=== PATIENT | female | born 1955 | race Caucasian/White ===

== ENCOUNTER 2017-03-07 11:25 | Outpatient (CLI) | payer BC | END 2017-03-07 11:26 | disposition home or self-care (01) | DX: E78.5 Hyperlipidemia, unspecified (principal); E03.9 Hypothyroidism, unspecified; I10 Essential (primary) hypertension ==

== ENCOUNTER 2017-04-23 12:58 | Outpatient (CLI) | payer BC | END 2017-04-23 12:59 | disposition EMS.NT | LOC: EMS 12:58 | PROVIDERS: ATTEND Surgery | DX: R20.0 Anesthesia of skin (principal); R20.2 Paresthesia of skin ==

== ENCOUNTER 2019-04-20 11:46 | Outpatient (CLI) | payer BC | END 2019-04-20 11:47 | disposition short-term general hospital (02) | LOC: EMS 11:46 | PROVIDERS: ATTEND Surgery | DX: R41.3 Other amnesia (principal); H53.2 Diplopia | CPT/HCPCS: A0425; A0427 ==

== ENCOUNTER 2020-10-30 12:27 | Outpatient (CLI) | payer OTHER | END 2020-10-30 12:28 | disposition EMS.NT | LOC: EMS 12:27 | PROVIDERS: ATTEND Surgery | DX: H53.9 Unspecified visual disturbance (principal); R47.02 Dysphasia ==

== ENCOUNTER 2022-02-12 08:00 | Outpatient (CLI) | payer MEDICARE ==
--- NOTE | 2022-02-12 09:51 | XRAY Report ---
PROCEDURE: Ankle 3 View LT INDICATIONS: LEFT ANKLE PAIN TECHNIQUE: 3 views of the ankle were acquired. COMPARISON: None. FINDINGS: BONES: Cortical irregularity of the anterior talar process, concerning for displaced fracture/avulsi on. The ankle mortise is maintained on these nonstressed views. SOFT TISSUES: Lateral soft tissue swelling. IMPRESSION: 1.Minimal displaced, avulsion fracture of the anterior talar process. Reviewed by: Myles Toledo MD on 02/12/2022 9:49 AM PDT Approved by: Myles Toledo MD on 02/12/2022 9:49 AM PDT Station ID: [id number]
== END 2022-02-12 23:59 | disposition home or self-care (01) ==
LOC: DI.S 08:00
PROVIDERS: ATTEND Registered Nurse
DX: S92.152A Displaced avulsion fracture (chip fracture) of left talus, initial encounter for closed fracture (principal)

== ENCOUNTER 2022-08-29 14:47 | Outpatient (CLI) | payer MEDICARE | END 2022-08-29 14:48 | disposition critical access hospital (66) | LOC: EMS 14:47 | DX: H53.8 Other visual disturbances (principal); R41.89 Other symptoms and signs involving cognitive functions and awareness; R47.9 Unspecified speech disturbances; R51.9 Headache, unspecified | CPT/HCPCS: A0425; A0429 ==

== ENCOUNTER 2022-08-29 15:25 | Emergency (ER) | payer MEDICARE ==
--- NOTE | 2022-08-29 15:43 | ED Physician Documentation ---
PD HPI FOCAL NEURO - Stated complaint Stated Complaint: AMS - History obtained from History obtained from: Patient - Additional information Additional information: 67-year-old woman with history of hypertension, depression, and ADD. She quit all of her medications a few weeks ago. She comes by ambulance for a resolved episode of symptoms that she has had before. Around 10:00 today she was feeding her horses and she developed what she d escribes as spotty vision in the periphery of both eyes with a pattern in the periphery of both eyes. There was nothing like amaurosis fugax or and had a hemianopsia. This was followed by mild confusion such as she could not really figure out her phone or figure out how to log in her computer. It was followed by some pressure behind the left eye. In total the symptoms lasted for a few hours and are now completely gone. She has had this several times before and has been to the hospital couple times for. It was diagnosed as TIA after thorough work-up and imaging. Review of Systems Ten Systems: 10 systems reviewed and negative Constitutional: denies: Fever, Chills Nose: denies: Rhinorrhea / runny nose Throat: denies: Sore throat Cardiac: denies: Chest pain / pressure, Palpitations Respiratory: denies: Dyspnea PD PAST MEDICAL HISTORY - Present Medications Home Medications: Ambulatory Orders Medication Instructions Recorded Confirmed SUMAtriptan [Imitrex] 25 mg PO BID PRN #10 tablet 08/29/22 - Allergies Allergies/Adverse Reactions: Allergies Allergy/AdvReac Type Severity Reaction Status Date / Time No Known Drug Allergies Allergy Verified 08/29/22 15:51 PD ED PE NORMAL - Vitals Vital signs reviewed: Yes - General General: Alert and oriented X 3, No acute distress - HEENT HEENT: PERRL, EOMI - Neck Neck: Supple, no meningeal sign, No bony TTP - Cardiac Cardiac: RRR, No murmur - Respiratory Respiratory: No respiratory distress, Clear bilaterally - Abdomen Abdomen: Normal bowel sounds, Soft, Non tender - Back Back: No CVA TTP, No spinal TTP - Derm Derm: Normal color, Warm and dry - Extremities Extremities: No edema, No calf tenderness / cord - Neuro Neuro: Alert and oriented X 3, 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, Normal speech Eye Opening: Spontaneous Motor: Obeys Commands Verbal: Oriented GCS Score: 15 NIHSS - Time Time: 15:40 - Level of Consciousness Level of consciousness: (0) Alert, Keenly responsive LOC Questions: (0) Answers both Q's correct LOC Commands: (0) Performs both correctly - Gaze Best Gaze: (0) Normal - Visual Visual: (0) No loss - Facial Palsy Facial Palsy: (0) Normal, symmetrical movement - Motor Arms (both separate) Motor Arm (right): (0) No drift Motor Arm (left): (0) No drift - Motor Legs (both separate) Motor Leg (right): (0) No drift Motor Leg (left): (0) No drift - Limb Ataxia Limb Ataxia: (0) Absent - Sensory Sensory: (0) Normal - Best Language Best Language: (0) No aphasia - Dysarthria Dysarthria: (0) Normal - Extinction and Inattention (formally neg Extinction and inattention: (0) No abnormality - Total Score/Results Total Score/Result: 0 Results - Vitals Vitals: Vital Signs - 24 hr 08/29/22 15:41 Temperature 36.4 C L Heart Rate 63 Respiratory 18 Rate Blood Pressure 156/108 H O2 Saturation 100 Oxygen O2 Source Room air PD MEDICAL DECISION MAKING - ED course ED course: Her description with the vision and the resolution of symptoms with previously negative work-ups for exactly the same thing suggest ophthalmic migraines as opposed to TIA. This was her suspicion all along and we agree. She has been noncompliant with her antihypertensives and she has them at home and I recommended she restart them. We discussed repeating routine stroke TIA testing but given the alternative likely diagnosis and previous negative work-ups she declines. Departure - Departure Disposition: 01 Home, Self Care Clinical Impression: Ophthalmic migraine Condition: Good Record reviewed to determine appropriate education?: Yes Instructions: ED Headache Migraine Prescriptions: SUMAtriptan [Imitrex] 25 mg PO BID PRN #10 tablet PRN Reason: Headache Comments: You were seen today for symptoms consistent with ocular/ophthalmic migraines. Since previous negative testing was done and your symptoms are resolved, we don't think repeat testing/imaging is necessary. Followup with your primary care doctor, next available appointment. I am prescribing imitrex, a migraine aborting medication, take it next time you have the eye symptoms and hopefully you will not progress to having the memory/confusional symptoms.
[2022-08-29 15:44] VITALS: BP 156/108
== END 2022-08-29 15:58 | disposition home or self-care (01) ==
LOC: EDUNIT# → ED 15:25
DX: G43.B0 Ophthalmoplegic migraine, not intractable (principal)
CPT/HCPCS: 99282; 99283

== ENCOUNTER 2023-04-09 16:44 | Outpatient (CLI) | payer MEDICARE ==
[2023-04-09 17:00] LABS: BASOPHILS % (AUTO) 0.5 %; EOSINOPHILS # (AUTO) 0.3 10^3/uL (0.0-0.7); EOSINOPHILS % (AUTO) 4.1 %; HCT - HEMATOCRIT 39.5 % (37.0-47.0); HGB - HEMOGLOBIN 12.8 g/dL (12.0-16.0); LYMPHOCYTES # (AUTO) 1.9 10^3/uL (1.5-3.5); MEAN CORPUSCULAR HEMOGLOBIN 32.9 pg (27.0-31.0); MEAN CORPUSCULAR HGB CONC 32.4 g/dL (32.0-36.0); MEAN CORPUSCULAR VOLUME 101.5 fL (81.0-99.0); MEAN PLATELET VOLUME 9.6 fL (7.9-10.8); MONOCYTES # (AUTO) 0.4 10^3/uL (0.0-1.0); MONOCYTES % (AUTO) 5.6 %; NEUTROPHILS # (AUTO) 3.8 10^3/uL (1.5-6.6); NEUTROPHILS % (AUTO) 59.6 %; PLT - PLATELET COUNT 259 10^3/uL (130-450); RED BLOOD COUNT 3.89 10^6/uL (4.20-5.40); RED CELL DISTRIBUTION WIDTH 13.7 % (12.0-15.0); WHITE BLOOD COUNT 6.4 x10^3/uL (4.8-10.8)
[2023-04-09 17:23] LABS: ALBUMIN 4.2 g/dL (3.2-5.5); ALBUMIN/GLOBULIN RATIO 1.6 (1.0-2.2); ALKALINE PHOSPHATASE 65 IU/L (42-121); ALT ALANINE AMINOTRANSFERASE 15 IU/L (10-60); AST ASPARTATE AMINOTRANSFERASE 17 IU/L (10-42); BILIRUBIN,TOTAL 1.6 mg/dL (0.2-1.0); BUN - BLOOD UREA NITROGEN 12 mg/dL (6-20); CALCIUM 9.2 mg/dL (8.5-10.3); CARBON DIOXIDE - CO2 30 mmol/L (21-32); CHLORIDE 104 mmol/L (101-111); CREATININE 0.7 mg/dL (0.4-1.0); GFR - MDRD 83 (>89); GLUCOSE 117 mg/dL (70-100); POTASSIUM 3.4 mmol/L (3.5-5.0); SODIUM 140 mmol/L (135-145); TOTAL PROTEIN 6.8 g/dL (6.7-8.2)
[2023-04-09 17:42] LABS: BILIRUBIN,URINE NEGATIVE (NEGATIVE); GLUCOSE, URINE (UA) NEGATIVE (NEGATIVE); KETONES,URINE (UA) NEGATIVE (NEGATIVE); LEUKOCYTE ESTERASE, URINE NEGATIVE (NEGATIVE); NITRITE,URINE POSITIVE (NEGATIVE); OCCULT BLOOD,URINE NEGATIVE (NEGATIVE); PH,URINE 5.5 PH (5.0-7.5); PROTEIN,URINE NEGATIVE (NEGATIVE); UROBILINOGEN,URINE 0.2 (NORMAL) E.U./dL (NORMAL)
[2023-04-09 17:44] LABS: CLARITY,URINE HAZY (CLEAR)
[2023-04-09 18:02] LABS: BACTERIA,URINE Many /HPF (None Seen); RBC,URINE 0-5 /HPF (0-5); SQUAMOUS EPITHELIAL CELL,UR RARE Squamous (<= Few); WBC,URINE 0-3 /HPF (0-5)
[2023-04-09 18:37] LABS: CRP - C-REACTIVE PROTEIN < 1.0 mg/dL (0-1.0)
== END 2023-04-09 16:45 | disposition home or self-care (01) ==
LOC: LAB 16:44
PROVIDERS: ATTEND Registered Nurse
DX: L03.011 Cellulitis of right finger (principal); R53.83 Other fatigue; M25.50 Pain in unspecified joint
CPT/HCPCS: 36415; 80053; 81001; 85025; 85651; 86140; 87086; 87181